=== PATIENT | male | born 1980 | race African-American/Black ===

== ENCOUNTER 2023-12-23 19:16 | Emergency (ER) | payer OTHER, MEDICAID ==
[~2023-12-23] VITALS: Ht 188 cm; Wt 83.9 kg
[2023-12-23 19:30] VITALS: BP 116/80; PULSE 69; RESP 20; TEMP 98; O2SAT 96
[2023-12-23] MEDS ORDERED: ACETAMINOPHEN/CODEINE 300/30MG 1 TAB PO ONE (21:00)
[2023-12-23] MEDS ORDERED: DICL20GE TP (21:11)
[2023-12-23] MEDS ORDERED: NAPR-337 PO (21:11)
== END 2023-12-23 21:39 | disposition home or self-care (01) ==
LOC: MED 19:16
DX: S80.02XA Contusion of left knee, initial encounter (principal); M25.561 Pain in right knee; Z79.899 Other long term (current) drug therapy; X58.XXXA Exposure to other specified factors, initial encounter; Y92.89 Other specified places as the place of occurrence of the external cause; Y93.89 Activity, other specified; Y99.8 Other external cause status
CPT/HCPCS: 73562; 99283